=== PATIENT | female | born 1935 | race Caucasian/White ===

== ENCOUNTER 2017-12-19 00:34 | Emergency (ER) | payer MEDICARE ==
[~2017-12-19] VITALS: Ht 162.6 cm; Wt 90.0 kg
[~2017-12-19 00:34] MED LIST: AMLO2.5T PO; DIAZ5 PO; PROBCAP4 PO; REME15TA PO; ROSU10 PO; TYLE3 PO; VITATAB25 PO
[2017-12-19 00:40] VITALS: BP 180/83; PULSE 84; RESP 18; TEMP 97.5; O2SAT 97
[2017-12-19] MEDS ORDERED: cloNIDine HCL 0.1 MG TAB PO ONE (00:45)
--- NOTE | 2017-12-19 00:46 | PD ---
HPI Chief Complaint: HTN Time Seen by Provider: 00:40 Travel History International Travel<30 days: No Contact w/Intl Traveler<30days: No Traveled to known affect area: No History of Present Illness HPI Patient called 911, she complained of slight head throbbing which she usually feels when her blood pressure is up. She checked her blood pressure which read as 200 systolic and the patient call 911 for transportation and further assistance This is all that the patient is sharing at this time. Patient states that she was diagnosed with sinusitis and is on Levaquin for it. Allergic to atorvastatin, Z-Ramesh and Coumadin Past medical history significant for hypercholesterolemia tachyarrhythmia, DVT, cholecystectomy, hiatal hernia, hysterectomy, anxiety, depression, PFSH Past Medical History Arthritis: Yes Anxiety: Yes (TAKES VALIUM OCCASIONALLY FOR SLEEP) Depression: Yes Cancer: No Cardiovascular Problems: Yes (HX TACHYARRHYTHMIA) High Cholesterol: Yes Diabetes: No Diminished Hearing: No Deep Vein Thrombosis: Yes Endocrine: No Gastrointestinal Disorders: No (CURRENT ABDOMINAL PAIN) Genitourinary: No Headaches: Yes Hepatitis: No Hiatal Hernia: Yes Hypertension: Yes Immune Disorder: No Implanted Vascular Access Dvce: No Musculoskeletal: Yes (DDD, ARTHRITIS) Neurologic: Yes (POST HERPETIC TRIGEMINAL NEURALGIA, HEADACHES) Psychiatric: Yes (ANXIETY, CLAUSTRAPHOBIA) Reproductive: No Respiratory: No Seizures: No Thyroid Disease: No Menopausal: Yes Past Surgical History Abdominal Surgery: Yes ( STEPHANIE. ING. HERNIA REP.ABD. HERNIA REP. x3, CHOLECYSTECTOMY) AICD: No Cardiac Surgery: No Cholecystectomy: Yes Ear Surgery: No Endocrine Surgery: No Eye Surgery: Yes (L CATARACT ) Genitourinary Surgery: No Gynecologic Surgery: Yes (HYSTERECTOMY) Hysterectomy: Yes (1999) Joint Replacement: No Neurologic Surgery: No Oral Surgery: No Pacemaker: No Thoracic Surgery: No Other Surgery: Yes (HYSTERECTOMY, CHOLECYSTECTOMY, HERNIA REPAIR) Social History Alcohol Use: Yes (RARELY) Tobacco Use: No Substance Use: No Allergies-Medications (Allergen,Severity, Reaction): Coded Allergies: atorvastatin (Verified Allergy, Severe, MUSCLE PAIN, 12/19/17) warfarin (Verified Allergy, Severe, HIVES, 12/19/17) azithromycin (Verified Adverse Reaction, Severe, abd pain, 12/19/17) Reported Meds & Prescriptions Reported Meds & Active Scripts Active Reported Levofloxacin 750 Mg Tablet 750 Mg PO DAILY Ipratropium Nasal 0.06% [place] 1 [place] EACH NARE QID Valacyclovir (Valacyclovir HCl) 1,000 Mg Tab 1,000 Mg PO BID Trazodone (Trazodone HCl) 50 Mg Tab 50 Mg PO HS Rosuvastatin (Rosuvastatin Calcium) 10 Mg Tab 10 Mg PO HS Hydrochlorothiazide 25 Mg Tab 25 Mg PO DAILY Diazepam 5 Mg Tab 2.5 Mg PO HS PRN Citalopram HBr (Citalopram Hydrobromide) 20 Mg/10 Ml Solution 10 Mg PO DAILY Carbamazepine 100 Mg Chew 100 Mg CHEW BID Aspirin 81 Low Dose (Aspirin) 81 Mg Chew 81 Mg CHEW DAILY Amlodipine (Amlodipine Besylate) 5 Mg Tab 5 Mg PO DAILY Review of Systems General / Constitutional: No: Fever Eyes: No: Visual changes HENT: Positive: Headaches Cardiovascular: No: Chest Pain or Discomfort Respiratory: No: Shortness of Breath Gastrointestinal: No: Abdominal Pain Genitourinary: No: Dysuria Musculoskeletal: No: Pain Skin: No Rash Neurologic: No: Weakness Psychiatric: No: Depression Endocrine: No: Polydipsia Hematologic/Lymphatic: No: Easy Bruising Physical Exam Narrative GENERAL: SKIN: Warm and dry. HEAD: Atraumatic. Normocephalic. EYES: Pupils equal and round. No scleral icterus. No injection or drainage. ENT: No nasal bleeding or discharge. Mucous membranes pink and moist. NECK: Trachea midline. No JVD. CARDIOVASCULAR: Regular rate and rhythm. RESPIRATORY: No accessory muscle use. Clear to auscultation. Breath sounds equal bilaterally. GASTROINTESTINAL: Abdomen soft, non-tender, nondistended. MUSCULOSKELETAL: Extremities without clubbing, cyanosis, or edema. No obvious deformities. NEUROLOGICAL: Awake and alert. No obvious cranial nerve deficits. Motor grossly within normal limits. Five out of 5 muscle strength in the arms and legs. Normal speech. PSYCHIATRIC: Appropriate mood and affect; insight and judgment normal. Data Data Last Documented VS Vital Signs Date Time Temp Pulse Resp B/P (MAP) Pulse Ox O2 Delivery O2 Flow Rate FiO2 12/19/17 03:34 69 16 132/74 (93) 99 12/19/17 02:00 Room Air 12/19/17 00:40 97.5 Orders Orders Clonidine (Catapres) (12/19/17 00:45) Ct Brain W/O Iv Contrast(Rout) (12/19/17 00:40) Lorazepam Inj (Ativan Inj) (12/19/17 02:15) Ed Discharge Order (12/19/17 02:27) [facility] Medical Decision Making Medical Screen Exam Complete: Yes Emergency Medical Condition: Yes Medical Record Reviewed: Yes Differential Diagnosis Hypertensive urgency versus intracranial hemorrhage versus sinus headache with secondary hypertension Narrative Course CT head read by the radiologist as no acute intracranial abnormality, left ethmoid and left maxillary sinus disease. The sinusitis is known to the patient who is already being treated with Levaquin Patient's hypertension resolved with a single clonidine from systolic of 200s down to a systolic of 152 Diagnosis Primary Impression: Hypertension Qualified Codes: I10 - Essential (primary) hypertension Patient Instructions: General Instructions, Hypertension (DC), Sinusitis (GEN) Additional Instructions: CONTINUE TAKING YOUR ANTIBIOTIC FOR YOUR SINUSITIS AND SEE YOUR REGULAR DOCTOR FOR ANY FURTHER EVALUATION AND CONTROL OF YOUR BLOOD PRESSURE Disposition: 01 DISCHARGE HOME Condition: Stable Jameel Page MD Dec 19, 2017 00:46
[2017-12-19] MEDS ORDERED: CITA10SO5 PO (01:25)
[2017-12-19] MEDS ORDERED: AMLO5TAB2 PO (01:25)
[2017-12-19] MEDS ORDERED: LEVO750T3 PO (01:25)
[2017-12-19] MEDS ORDERED: HYDR25TA5 PO (01:25)
[2017-12-19] MEDS ORDERED: ROSU1TAB6 PO (01:25)
[2017-12-19] MEDS ORDERED: IPRA0.06 EACH NARE (01:25)
[2017-12-19] MEDS ORDERED: CARB100C CHEW (01:25)
[2017-12-19] MEDS ORDERED: ASPI1CHW4 CHEW (01:25)
[2017-12-19] MEDS ORDERED: VALA1TAB PO (01:25)
[2017-12-19] MEDS ORDERED: TRAZ50TA12 PO (01:25)
[2017-12-19] MEDS ORDERED: DIAZ5TAB PO (01:25)
--- NOTE | 2017-12-19 01:49 | RADRPT ---
EXAM DATE/TIME: 12/19/2017 01:35 [facility] COMPARISON: No previous studies available for comparison. INDICATIONS : Cephalgia. RADIATION DOSE: 59.98 CTDIvol (mGy) MEDICAL HISTORY : Hypertension. SURGICAL HISTORY : None. ENCOUNTER: Initial ACUITY: 1 day PAIN SCALE: 5/10 LOCATION: cranial TECHNIQUE: Multiple contiguous axial images were obtained of the head. Using automated exposure control and adj ustment of the mA and/or kV according to patient size, radiation dose was kept as low as reasonably a chievable to obtain optimal diagnostic quality images. DICOM format image data is available electro nically for review and comparison. FINDINGS: CEREBRUM: The ventricles are normal for age. No evidence of midline shift, mass lesion, hemorrhage or acute in farction. No extra-axial fluid collections are seen. POSTERIOR FOSSA: The cerebellum and brainstem are intact. The 4th ventricle is midline. The cerebellopontine angle i s unremarkable. EXTRACRANIAL: The visualized portion of the orbits is intact. Complete opacification of the ethmoid air cells on th e left. No bony destruction. Mild mucosal thickening involving the left maxillary sinus without air-f luid level. Remaining paranasal sinuses and mastoid air cells are clear. SKULL: The calvaria is intact. No evidence of skull fracture. CONCLUSION: 1. No acute intracranial abnormality. 2. Left ethmoid and left maxillary sinus disease. Rai Morgan Jr., MD on December 19, 2017 at 1:47 Board Certified Radiologist. This report was verified electronically.
[2017-12-19 02:00] VITALS: BP 156/83; PULSE 74; RESP 20; O2SAT 98
[2017-12-19] MEDS ORDERED: LORazepam 2 MG/ML VIAL IV PUSH ONE (02:15)
[2017-12-19 03:34] VITALS: BP 132/74
== END 2017-12-19 03:36 | disposition home or self-care (01) ==
LOC: PHED 00:34
DX: I10 Essential (primary) hypertension (principal)
CPT/HCPCS: 70450; 96374; 99285; J2060

== ENCOUNTER 2017-12-19 21:51 | Inpatient (IN) | payer MEDICARE ==
[~2017-12-19] VITALS: Ht 167.6 cm; Wt 85.5 kg
[~2017-12-19 21:51] MED LIST changes: +AMLO5TAB2 PO; +ASPI1CHW4 CHEW; +CARB100C CHEW; +CITA10SO5 PO; +DIAZ5TAB PO; +HYDR25TA5 PO; +IPRA0.06 EACH NARE; +LEVO750T3 PO; +ROSU1TAB6 PO; +TRAZ50TA12 PO; +VALA1TAB PO
[2017-12-19 22:08] VITALS: BP 180/79; PULSE 75; RESP 18; TEMP 97.8; O2SAT 97
[2017-12-19] MEDS ORDERED: LORazepam 2 MG/ML VIAL IV PUSH ONE (23:15)
[2017-12-19] MEDS ORDERED: SODIUM CHLORIDE 0.9% FLUSH 10 ML FLUSH IV FLUSH PRN (23:15)
--- NOTE | 2017-12-19 23:18 | PD ---
HPI Chief Complaint: GI Complaint Time Seen by Provider: 23:08 Travel History International Travel<30 days: No Contact w/Intl Traveler<30days: No Traveled to known affect area: No History of Present Illness HPI Patient is an 82-year-old female presents emergency department for evaluation of nausea and vomiting. Patient was seen here yesterday for headache and elevated blood pressure, she received clonidine and a CAT scan of her head which showed some mild sinusitis and she was started on antibiotic. She states after taking the antibiotic today she started having some nausea and vomiting. No labs were checked on her yesterday. She also admits to having very anxious personality. States she has some mild abdominal cramping but no severe pain. She states that her headache is fairly mild currently and is coronal and distribution. She denies any chest pain shortness of breath diarrhea constipation extremity pain. She does endorse tremors PFSH Past Medical History Arthritis: Yes Anxiety: Yes (TAKES VALIUM OCCASIONALLY FOR SLEEP) Depression: Yes Cancer: No Cardiovascular Problems: Yes (HX TACHYARRHYTHMIA) High Cholesterol: Yes Diabetes: No Diminished Hearing: No Deep Vein Thrombosis: Yes Endocrine: No Genitourinary: No Headaches: Yes Hepatitis: No Hiatal Hernia: Yes Hypertension: Yes Immune Disorder: No Implanted Vascular Access Dvce: No Musculoskeletal: Yes (DDD, ARTHRITIS) Neurologic: Yes (POST HERPETIC TRIGEMINAL NEURALGIA, HEADACHES) Psychiatric: Yes (ANXIETY, CLAUSTRAPHOBIA) Reproductive: No Respiratory: No Seizures: No Thyroid Disease: No ?: Not Menopausal: Yes Past Surgical History Abdominal Surgery: Yes ( STEPHANIE. ING. HERNIA REP.ABD. HERNIA REP. x3, CHOLECYSTECTOMY) AICD: No Cardiac Surgery: No Cholecystectomy: Yes Ear Surgery: No Endocrine Surgery: No Eye Surgery: Yes (L CATARACT ) Genitourinary Surgery: No Gynecologic Surgery: Yes (HYSTERECTOMY) Hysterectomy: Yes (1999) Joint Replacement: No Neurologic Surgery: No Oral Surgery: No Pacemaker: No Thoracic Surgery: No Other Surgery: Yes (HYSTERECTOMY, CHOLECYSTECTOMY, HERNIA REPAIR) Social History Alcohol Use: Yes (RARELY) Tobacco Use: No Substance Use: No Allergies-Medications (Allergen,Severity, Reaction): Coded Allergies: atorvastatin (Verified Allergy, Severe, MUSCLE PAIN, 12/20/17) warfarin (Verified Allergy, Severe, HIVES, 12/20/17) azithromycin (Verified Adverse Reaction, Severe, abd pain, 12/20/17) Reported Meds & Prescriptions Reported Meds & Active Scripts Active Reported Levofloxacin 750 Mg Tablet 750 Mg PO DAILY Ipratropium Nasal 0.06% [place] 1 [place] EACH NARE QID Trazodone (Trazodone HCl) 50 Mg Tab 50 Mg PO HS Rosuvastatin (Rosuvastatin Calcium) 10 Mg Tab 10 Mg PO HS Hydrochlorothiazide 25 Mg Tab 25 Mg PO DAILY Diazepam 5 Mg Tab 2.5 Mg PO HS PRN Citalopram HBr (Citalopram Hydrobromide) 20 Mg/10 Ml Solution 10 Mg PO DAILY Carbamazepine 100 Mg Chew 100 Mg CHEW BID Aspirin 81 Low Dose (Aspirin) 81 Mg Chew 81 Mg CHEW DAILY Amlodipine (Amlodipine Besylate) 5 Mg Tab 5 Mg PO DAILY Review of Systems Except as stated in HPI: all other systems reviewed are Neg Physical Exam Narrative GENERAL: Well-developed well-nourished, mildly tremulous, anxious. SKIN: Focused skin assessment warm/dry. HEAD: Atraumatic. Normocephalic. EYES: Pupils equal and round. No scleral icterus. No injection or drainage. ENT: No nasal bleeding or discharge. Mucous membranes pink and moist. NECK: Trachea midline. No JVD. CARDIOVASCULAR: Regular rate and rhythm. No murmur appreciated. RESPIRATORY: No accessory muscle use. Clear to auscultation. Breath sounds equal bilaterally. GASTROINTESTINAL: Abdomen soft, non-tender, nondistended. Hepatic and splenic margins not palpable. She has demonstrated dry heaves a few times in the emergency department MUSCULOSKELETAL: No obvious deformities. No clubbing. No cyanosis. No edema. NEUROLOGICAL: Awake and alert. Cranial nerves II through XII grossly intact and nonfocal, 5 out of 5 strength in all 4 extremities, the patient is exhibiting some mild essential tremor of bilateral upper extremities but her cerebellar testing is normal. PSYCHIATRIC: Appropriate mood and affect; insight and judgment normal. Data Data Last Documented VS Vital Signs Date Time Temp Pulse Resp B/P (MAP) Pulse Ox O2 Delivery O2 Flow Rate FiO2 12/20/17 00:18 72 20 155/73 (100) 97 12/19/17 23:59 Room Air 12/19/17 22:08 97.8 Orders Orders Complete Blood Count With Diff (12/19/17 23:14) Comprehensive Metabolic Panel (12/19/17 23:14) Lipase (12/19/17 23:14) Prothrombin Time / Inr (Pt) (12/19/17 23:14) Act Partial Throm Time (Ptt) (12/19/17 23:14) Urinalysis - C+S If Indicated (12/19/17 23:14) Iv Access Insert/Monitor (12/19/17 23:14) Ecg Monitoring (12/19/17 23:14) Oximetry (12/19/17 23:14) Sodium Chloride 0.9% Flush (Ns Flush) (12/19/17 23:15) Lorazepam Inj (Ativan Inj) (12/19/17 23:15) Ondansetron Inj (Zofran Inj) (12/19/17 23:30) Ondansetron Inj (Zofran Inj) (12/20/17 00:45) Sodium, Random Urine (12/20/17 00:45) Osmolality, Urine (12/20/17 00:45) Sodium Chlor 0.9% 1000 Ml Inj (Ns 1000 M (12/20/17 00:45) Ct Abd/Pel W Iv Contrast(Rout) (12/20/17 00:56) Iohexol 350 Inj (Omnipaque 350 Inj) (12/20/17 01:28) Admit Order (Ed Use Only) (12/20/17 ) Vital Signs (Adult) Q4H (12/20/17 02:46) Diet Heart Healthy (12/20/17 Breakfast) Notify Dr: Other (12/20/17 02:46) Ondansetron Inj (Zofran Inj) (12/20/17 03:00) Activity Oob With Assistance (12/20/17 02:46) Labs Laboratory Tests Test 12/19/17 23:15 12/19/17 23:45 12/20/17 00:00 White Blood Count 8.4 TH/MM3 Red Blood Count 4.59 MIL/MM3 Hemoglobin 13.2 GM/DL Hematocrit 38.8 % Mean Corpuscular Volume 84.6 FL Mean Corpuscular Hemoglobin 28.8 PG Mean Corpuscular Hemoglobin Concent 34.1 % Red Cell Distribution Width 13.4 % Platelet Count 214 TH/MM3 Mean Platelet Volume 7.7 FL Neutrophils (%) (Auto) 79.9 % Lymphocytes (%) (Auto) 12.5 % Monocytes (%) (Auto) 6.1 % Eosinophils (%) (Auto) 0.7 % Basophils (%) (Auto) 0.8 % Neutrophils # (Auto) 6.6 TH/MM3 Lymphocytes # (Auto) 1.1 TH/MM3 Monocytes # (Auto) 0.5 TH/MM3 Eosinophils # (Auto) 0.1 TH/MM3 Basophils # (Auto) 0.1 TH/MM3 CBC Comment DIFF FINAL Differential Comment Prothrombin Time 10.0 SEC Prothromb Time International Ratio 1.0 RATIO Activated Partial Thromboplast Time 24.0 SEC Blood Urea Nitrogen 10 MG/DL Creatinine 0.73 MG/DL Random Glucose 117 MG/DL Total Protein 6.9 GM/DL Albumin 3.4 GM/DL Calcium Level 8.6 MG/DL Alkaline Phosphatase 106 U/L Aspartate Amino Transf (AST/SGOT) 22 U/L Alanine Aminotransferase (ALT/SGPT) 16 U/L Total Bilirubin 0.4 MG/DL Sodium Level 121 MEQ/L Potassium Level 3.7 MEQ/L Chloride Level 87 MEQ/L Carbon Dioxide Level 24.5 MEQ/L Anion Gap 10 MEQ/L Estimat Glomerular Filtration Rate 77 ML/MIN Lipase 67 U/L Urine Color YELLOW Urine Turbidity CLEAR Urine pH 6.5 Urine Specific [place] 1.015 Urine Protein NEG mg/dL Urine Glucose (UA) NEG mg/dL Urine Ketones 15 mg/dL Urine Occult Blood NEG Urine Nitrite NEG Urine Bilirubin NEG Urine Urobilinogen 0.2 MG/DL Urine Leukocyte Esterase NEG Urine RBC 0-3 /hpf Urine WBC 3-5 /hpf Urine Squamous Epithelial Cells 0-5 /hpf Urine Bacteria NONE /hpf Microscopic Urinalysis Comment CULT NOT INDICATED Urine Osmolality 499 MOSM/KG Urine Random Sodium 123 MEQ/L [facility] Medical Decision Making Medical Screen Exam Complete: Yes Emergency Medical Condition: Yes Differential Diagnosis Dehydration, electrolyte abnormality, anxiety, acute abdomen unlikely. Narrative Course Patient was room to the emergency department, her laboratory workup was significant for hyponatremia with a sodium of 121 which may explain her tremors. She is a very anxious person, her blood pressure was significantly elevated on arrival but after Ativan was administered IV the patient's blood pressure normalized and her tremor ceased. She has not had any seizure activity while in the emergency department is alert and awake and oriented. CAT scan of her head was reviewed from yesterday and certainly did show some mild chronic sinusitis but nothing acute intracranially. Her headache had completely resolved in the emergency department. He was fairly mild and she did not have any nuchal rigidity. I do not think there is indication for lumbar puncture in this patient at this time. Patient did have a CT of her abdomen given the dry heaves and her sodium and there is no acute intra- abdominal pathology. Last 24 hours Impressions Abdomen/Pelvis CT 12/20/17 0056 Signed Impressions: Service Date/Time: Wednesday, December 20, 2017 01:08 - CONCLUSION: 1. No acute intraperitoneal or pelvic process to explain current clinical symptoms. 2. Stable nature and extrahepatic biliary ductal dilatation is likely related to prior cholecystectomy. 3. Small hiatal hernia. 4. Prior mesh repair of a small anterior abdominal wall hernia. Superior to be at the cephalad extent of the previous midline laparotomy scar. Tono Renteria MD Results were discussed with the patient I recommend observing her overnight in the hospital. Given her nausea and vomiting I think likely this is hypovolemic hyponatremia and she was given 500 cc bolus of normal saline. Urine sodium and urine osmolality were sent as well. Patient was discussed with Dr. Sykes for admission. Diagnosis Primary Impression: Hyponatremia Additional Impressions: N&V (nausea and vomiting) Headache Admitting Information Admitting Physician Requests: Admit Condition: Stable Shaq Thomas MD Dec 19, 2017 23:18
[2017-12-19 23:30] VITALS: BP 176/73; PULSE 80; RESP 20; O2SAT 98
[2017-12-19] MEDS ORDERED: ONDANSETRON HCL 4 MG/2 ML VIAL IV PUSH ONE (23:30)
[2017-12-19 23:35] LABS: AUTOMATED NEUTROPHIL # 6.6 TH/MM3 (1.8-7.7); BASOPHIL # 0.1 TH/MM3 (0-0.2); BASOPHIL % 0.8 % (0.0-2.0); EOSINOPHIL # 0.1 TH/MM3 (0-0.4); EOSINOPHIL % 0.7 % (0.0-4.0); HEMATOCRIT 38.8 % (35.0-46.0); HEMOGLOBIN 13.2 GM/DL (11.6-15.3); LYMPH % 12.5 % (9.0-44.0); LYMPHOCYTE # 1.1 TH/MM3 (1.0-4.8); MEAN CELL VOLUME 84.6 FL (80.0-100.0); MEAN CORPUSCULAR HEMOGLOBIN 28.8 PG (27.0-34.0); MEAN CORPUSCULAR HGB CONC 34.1 % (32.0-36.0); MEAN PLATELET VOLUME 7.7 FL (7.0-11.0); MONO % 6.1 % (0.0-8.0); MONOCYTE # 0.5 TH/MM3 (0-0.9); NEUT % 79.9 % (16.0-70.0); PLATELET COUNT 214 TH/MM3 (150-450); RED BLOOD COUNT 4.59 MIL/MM3 (4.00-5.30); RED CELL DISTRIBUTION WIDTH 13.4 % (11.6-17.2); WHITE BLOOD COUNT 8.4 TH/MM3 (4.0-11.0)
[2017-12-19 23:53] LABS: BILIRUBIN, URINE NEG (NEG); BLOOD, URINE NEG (NEG); GLUCOSE,URINE NEG (NEG); KETONE, URINE 15 mg/dL (NEG); NITRITE,URINE NEG (NEG); PH, URINE 6.5 (5.0-8.5); URINE COLOR YELLOW (YELLW/STRAW); URINE LEUKOCYTE ESTERASE NEG (NEG)
[2017-12-19 23:57] LABS: RBC, URINE 0-3 /hpf (0-3)
[2017-12-19 23:58] LABS: SQUAMOUS EPITHELIAL CELL URINE 0-5 /hpf (0-5)
[2017-12-19 23:59] VITALS: BP 155/73; PULSE 72; RESP 20; O2SAT 97
[2017-12-20] VITALS (9 sets, daily range): BP systolic 132–171; BP diastolic 62–84; PULSE 60–98; RESP 16–20; TEMP 96.4–98.1; O2SAT 95–98
[2017-12-20 00:19] LABS: ALBUMIN 3.4 GM/DL (3.4-5.0); ALKALINE PHOSPHATASE 106 U/L (45-117); ALT (GPT) 16 U/L (10-53); AST (GOT) 22 U/L (15-37); BICARBONATE 24.5 MEQ/L (21.0-32.0); BLOOD UREA NITROGEN 10 MG/DL (7-18); CALCIUM 8.6 MG/DL (8.5-10.1); CHLORIDE 87 MEQ/L (98-107); CREATININE 0.73 MG/DL (0.50-1.00); GLOMERULAR FILTRATION RATE 77 ML/MIN (>89); GLUCOSE,RANDOM 117 MG/DL (74-106); TOTAL BILIRUBIN ADULT 0.4 MG/DL (0.2-1.0); TOTAL PROTEIN 6.9 GM/DL (6.4-8.2)
[2017-12-20 00:22] LABS: SODIUM (NA) 121 MEQ/L (136-145)
[2017-12-20] MEDS ORDERED: ONDANSETRON HCL 4 MG/2 ML VIAL IV PUSH ONE (00:45)
[2017-12-20] MEDS ORDERED: SODIUM CHLOR 0.9% 1000 ML INJ 1,000 ML IV ONE (00:45)
[2017-12-20] MEDS ORDERED: IOHEXOL 350 MG/ML 10 ML VIAL (for RAD DIAG) IVCONTRAST ONE (01:28)
--- NOTE | 2017-12-20 02:29 | RADRPT ---
EXAM DATE/TIME: 12/20/2017 01:08 [facility] COMPARISON: CT ABDOMEN & PELVIS W CONTRAST, August 22, 2014, 21:26. INDICATIONS : Nausea and vomiting. Lower abdominal pain. IV CONTRAST: 100 cc Omnipaque 350 (iohexol) IV ORAL CONTRAST: No oral contrast ingested. RADIATION DOSE: 20.65 CTDIvol (mGy) MEDICAL HISTORY : Cardiovascular disease. SURGICAL HISTORY : Cholecystectomy. Inguinal hernia repair.Hysterectomy. ENCOUNTER: Initial ACUITY: 1 day PAIN SCALE: 8/10 LOCATION: Bilateral lower quadrant TECHNIQUE: Volumetric scanning of the abdomen and pelvis was performed. Using automated exposure control and ad justment of the mA and/or kV according to patient size, radiation dose was kept as low as reasonably achievable to obtain optimal diagnostic quality images. DICOM format image data is available electro nically for review and comparison. FINDINGS: LOWER LUNGS: The visualized lower lungs are clear. Small hiatal hernia. LIVER: Homogeneous density without lesion. There is some intra-and extra hepatic biliary ductal dilatation p robably representing a capacitance effect associated with prior cholecystectomy. SPLEEN: Normal size without lesion. PANCREAS: Within normal limits. KIDNEYS: Normal in size and shape. There is no mass, stone or hydronephrosis. Small cortical cyst on the left ADRENAL GLANDS: Within normal limits. VASCULAR: There is no aortic aneurysm. Atherosclerotic disease in the central portion of both renal arteries wi th a possible ostial stenosis on the right. BOWEL/MESENTERY: The stomach, small bowel, and colon demonstrate no acute abnormality. There is no free intraperitone al air or fluid. ABDOMINAL WALL: Findings characteristic of a previous midline laparotomy scar with probable mesh repair of a previous incisional hernia in the same general vicinity. RETROPERITONEUM: There is no lymphadenopathy. BLADDER: No wall thickening or mass. REPRODUCTIVE: Patient appears to be status post hysterectomy. INGUINAL: There is no lymphadenopathy or hernia. MUSCULOSKELETAL: Facet hypertrophy again identified at the lumbosacral junction with a mild dextroscoliosis of the lum bar spine. CONCLUSION: 1. No acute intraperitoneal or pelvic process to explain current clinical symptoms. 2. Stable nature and extrahepatic biliary ductal dilatation is likely related to prior cholecystectom y. 3. Small hiatal hernia. 4. Prior mesh repair of a small anterior abdominal wall hernia. Superior to be at the cephalad extent of the previous midline laparotomy scar. Tono Renteria MD on December 20, 2017 at 2:21 Board Certified Radiologist. This report was verified electronically.
[2017-12-20 02:50] LABS: SODIUM,RANDOM URINE 123 MEQ/L
[2017-12-20] MEDS ORDERED: ONDANSETRON HCL 4 MG/2 ML VIAL IV PUSH PRN (03:00)
[2017-12-20 03:04] LABS: OSMOLALITY,URINE 499 MOSM/KG (300-1300)
[2017-12-20] MEDS ORDERED: DIAZEPAM 5 MG TAB PO PRN (11:00)
[2017-12-20] MEDS: SODIUM CHLOR 0.9% 1000 ML INJ 1,000 ML IV SCH ×2 (11:15→20:46)
[2017-12-20] MEDS ORDERED: SENNOSIDES 8.6 MG TAB PO PRN (11:15)
[2017-12-20] MEDS ORDERED: LACTULOSE SYRUP 20 GM/30 ML CUP PO PRN (11:15)
[2017-12-20] MEDS ORDERED: MAGNESIUM HYDROXIDE SUSP 30 ML CUP PO PRN (11:15)
[2017-12-20] MEDS ORDERED: BISACODYL 10 MG SUPP RECTAL PRN (11:15)
[2017-12-20] MEDS ORDERED: NALOXONE HCL 0.4 MG/ML AMP IV PUSH PRN (11:15)
--- NOTE | 2017-12-20 11:19 | EKG ---
Date Performed: 12/19/2017 Time Performed: 23:05:08 PTAGE: 82 years EKG: Sinus rhythm NORMAL ECG PREVIOUS TRACING : 10/29/2014 08.35 Since the previous tracing, no significant change noted DOCTOR: Torito Mcintosh Interpretating Date/Time 12/20/2017 11:16:08
--- NOTE | 2017-12-20 11:19 | HHI.HP ---
HPI Service [facility] Hospitalists Primary Care Physician Autumn Camarillo MD Admission Diagnosis Symptomatic hyponatremia. N/V Chief Complaint: nausea and vomit Travel History International Travel<30 Days: No Contact w/Intl Traveler <30 Da: No Traveled to Known Affected Are: No History of Present Illness Patient is an 82-year-old female presents emergency department for evaluation of nausea and vomiting. Patient was seen here yesterday for headache and elevated blood pressure, she received clonidine and a CAT scan of her head which showed some mild sinusitis and she was started on antibiotic. She states after taking the antibiotic today she started having some nausea and vomiting. No labs were checked on her yesterday. She also admits to having very anxious personality. States she has some mild abdominal cramping but no severe pain. She states that her headache is fairly mild currently and is coronal and distribution. She denies any chest pain shortness of breath diarrhea constipation extremity pain. She does endorse tremors. Patient with history of hypertension and is supposed to be on bid 5mg amlodipine will restart at that dose and was on levaquin at 750 which started her symptoms also unable to tolerate zithromax has been on amoxicillin in past will start for sinus. Patient sodium low and started on IV fluid related to possible diuretic and the nausea and vomit has been normal in past. will start on po intake continue IV fluid recheck lab in am if stable discharge tomorrow. Review of Systems Gastrointestinal: COMPLAINS OF: Nausea, Vomiting Psychiatric: COMPLAINS OF: Anxiety Past Family Social History Past Medical History hypertension,DVT,depression,tachyarrhythmia,hernia djd neuralgia Past Surgical History gallbladder,hysterectomy,cataract Reported Medications [id number],valium 2.5,crestor 10 citaloprim 10,nasal spray,trazadone 50, amlodipine 5 bid hctz 25 asa 81 carbamazpine 100 bid Allergies: Coded Allergies: atorvastatin (Verified Allergy, Severe, MUSCLE PAIN, 12/20/17) warfarin (Verified Allergy, Severe, HIVES, 12/20/17) azithromycin (Verified Adverse Reaction, Severe, abd pain, 12/20/17) Social History NS,ND Physical Exam Vital Signs Vital Signs Date Time Temp Pulse Resp B/P (MAP) Pulse Ox O2 Delivery O2 Flow Rate FiO2 12/20/17 08:00 96.4 60 16 132/63 (86) 96 12/20/17 04:42 96.8 74 18 145/78 (100) 96 12/20/17 04:27 68 159/74 (102) 96 12/20/17 02:30 80 20 171/84 (113) 98 12/20/17 01:30 75 20 167/81 (109) 97 12/20/17 00:18 72 20 155/73 (100) 97 12/19/17 23:59 72 20 155/73 (100) 97 Room Air 12/19/17 23:59 20 12/19/17 23:30 80 20 176/73 (107) 98 12/19/17 22:08 97.8 75 18 180/79 (112) 97 Physical Exam GENERAL: This is a well-nourished, well-developed patient, in no apparent distress. SKIN: No rashes, ecchymoses or lesions. Cool and dry. HEAD: Atraumatic. Normocephalic. No temporal or scalp tenderness. EYES: Pupils equal round and reactive. Extraocular motions intact. No scleral icterus. No injection or drainage. ENT: Nose without bleeding, purulent drainage or septal hematoma. Throat without erythema, tonsillar hypertrophy or exudate. Uvula midline. Airway patent. NECK: Trachea midline. No JVD or lymphadenopathy. Supple, nontender, no meningeal signs. CARDIOVASCULAR: Regular rate and rhythm without murmurs, gallops, or rubs. RESPIRATORY: Clear to auscultation. Breath sounds equal bilaterally. No wheezes , rales, or rhonchi. GASTROINTESTINAL: Abdomen soft, non-tender, nondistended. No hepato-splenomegaly , or palpable masses. No guarding. MUSCULOSKELETAL: Extremities without clubbing, cyanosis, or edema. No joint tenderness, effusion, or edema noted. No calf tenderness. Negative Homans sign bilaterally. NEUROLOGICAL: Awake and alert. Cranial nerves II through XII intact. Motor and sensory grossly within normal limits. Five out of 5 muscle strength in all muscle groups. Normal speech. Laboratory Laboratory Tests Test 12/19/17 23:15 12/19/17 23:45 12/20/17 00:00 White Blood Count 8.4 Red Blood Count 4.59 Hemoglobin 13.2 Hematocrit 38.8 Mean Corpuscular Volume 84.6 Mean Corpuscular Hemoglobin 28.8 Mean Corpuscular Hemoglobin Concent 34.1 Red Cell Distribution Width 13.4 Platelet Count 214 Mean Platelet Volume 7.7 Neutrophils (%) (Auto) 79.9 Lymphocytes (%) (Auto) 12.5 Monocytes (%) (Auto) 6.1 Eosinophils (%) (Auto) 0.7 Basophils (%) (Auto) 0.8 Neutrophils # (Auto) 6.6 Lymphocytes # (Auto) 1.1 Monocytes # (Auto) 0.5 Eosinophils # (Auto) 0.1 Basophils # (Auto) 0.1 CBC Comment DIFF FINAL Differential Comment Prothrombin Time 10.0 Prothromb Time International Ratio 1.0 Activated Partial Thromboplast Time 24.0 Blood Urea Nitrogen 10 Creatinine 0.73 Random Glucose 117 Total Protein 6.9 Albumin 3.4 Calcium Level 8.6 Alkaline Phosphatase 106 Aspartate Amino Transf (AST/SGOT) 22 Alanine Aminotransferase (ALT/SGPT) 16 Total Bilirubin 0.4 Sodium Level 121 Potassium Level 3.7 Chloride Level 87 Carbon Dioxide Level 24.5 Anion Gap 10 Estimat Glomerular Filtration Rate 77 Lipase 67 Urine Color YELLOW Urine Turbidity CLEAR Urine pH 6.5 Urine Specific Jennings 1.015 Urine Protein NEG Urine Glucose (UA) NEG Urine Ketones 15 Urine Occult Blood NEG Urine Nitrite NEG Urine Bilirubin NEG Urine Urobilinogen 0.2 Urine Leukocyte Esterase NEG Urine RBC 0-3 Urine WBC 3-5 Urine Squamous Epithelial Cells 0-5 Urine Bacteria NONE Microscopic Urinalysis Comment CULT NOT INDICATED Urine Osmolality 499 Urine Random Sodium 123 Result Diagram: 12/19/17231412/19/172314 Imaging CT head sinusitis,cxr no acute changes ekg no acute changes Course started on IV fluid and zofran Septic Shock Reassessment Septic shock perfusion: reassessment completed Caprini VTE Risk Assessment Caprini VTE Risk Assessment: Mod/High Risk (score >= 2) Caprini Risk Assessment Model Point Value = 1 Point Value = 2 Point Value = 3 Point Value = 5 Age 41-60 Minor surgery BMI > 25 kg/m2 Swollen legs Varicose veins or History of unexplained or recurrent spontaneous Oral contraceptives or hormone replacement Sepsis (< 1 month) Serious lung disease, including pneumonia (< 1 month) Abnormal pulmonary function Acute myocardial infarction Congestive heart failure (< 1 month) History of inflammatory bowel disease Medical patient at bed rest Age 61-74 Arthroscopic surgery Major open surgery (> 45 min) Laparoscopic surgery (> 45 min) Malignancy Confined to bed (> 72 hours) Immobilizing plaster cast Central venous access Age >= 75 History of VTE Family history of VTE Factor V Leiden Prothrombin [id number] Lupus anticoagulant Anticardiolipin antibodies Elevated serum homocysteine Heparin-induced thrombocytopenia Other congenital or acquired thrombophilia Stroke (< 1 month) Elective arthroplasty Hip, pelvis, or leg fracture Acute spinal cord injury (< 1 month) Prophylaxis Regimen Total Risk Factor Score Risk Level Prophylaxis Regimen 0-1 Low Early ambulation 2 Moderate Order ONE of the following: *Sequential Compression Device (SCD) *Heparin 5000 units SQ BID 3-4 Higher Order ONE of the following medications: *Heparin 5000 units SQ TID *Enoxaparin/Lovenox 40 mg SQ daily (WT < 150 kg, CrCl > 30 mL/min) *Enoxaparin/Lovenox 30 mg SQ daily (WT < 150 kg, CrCl > 10-29 mL/min) *Enoxaparin/Lovenox 30 mg SQ BID (WT < 150 kg, CrCl > 30 mL/min) AND/OR *Sequential Compression Device (SCD) 5 or more Highest Order ONE of the following medications: *Heparin 5000 units SQ TID (Preferred with Epidurals) *Enoxaparin/Lovenox 40 mg SQ daily (WT < 150 kg, CrCl > 30 mL/min) *Enoxaparin/Lovenox 30 mg SQ daily (WT < 150 kg, CrCl > 10-29 mL/min) *Enoxaparin/Lovenox 30 mg SQ BID (WT < 150 kg, CrCl > 30 mL/min) AND *Sequential Compression Device (SCD) Assessment and Plan Problem List: (1) Hyponatremia ICD Codes: E87.1 - Hypo-osmolality and hyponatremia Status: Acute Plan: probably related to N and v and is on diuretic will hold diuretic give IV fluid follow up labs try po intake (2) N&V (nausea and vomiting) ICD Codes: R11.2 - Nausea with vomiting, unspecified Status: Acute Plan: a little better with zofran will continue for now (3) Hypertension ICD Codes: I10 - Hypertension Status: Acute Plan: continue amlodipine was given clonidine in er yesterday which also make her not feel well if needed can add losartan (4) Sinusitis ICD Codes: J32.9 - Chronic sinusitis, unspecified Plan: will stop levaquin and start amoxicillin Assessment and Plan as aboe recheck labs Code Status full Discussed Condition With patient Physician Certification 2 Midnight Certification Type: Admission for Inpatient Services Order for Inpatient Services The services are ordered in accordance with Medicare regulations or non- Medicare payer requirements, as applicable. In the case of services not specified as inpatient-only, they are appropriately provided as inpatient services in accordance with the 2-midnight benchmark. Estimated LOS (days): 2 2 days is the estimated time the patient will need to remain in the hospital, assuming treatment plan goals are met and no additional complications. Post-Hospital Plan: Not yet determined Mario Sykes MD Dec 20, 2017 11:18
[2017-12-20] MEDS ORDERED: IPRATROPIUM NASAL SCH (13:00)
[2017-12-20] MEDS: AMOXICILLIN (TRIHYDRATE) 250 MG CAP PO SCH ×2 (14:31→18:00)
[2017-12-20] MEDS: amLODIPine BESYLATE 5 MG TAB PO SCH (20:44)
[2017-12-20] MEDS: DOCUSATE SODIUM 50 MG/SENNA 8.6 MG TAB PO SCH (20:44)
[2017-12-20] MEDS ORDERED: traZODone HCL 50 MG TAB PO SCH (21:00)
[2017-12-20] MEDS ORDERED: ATORVASTATIN 20 MG TAB PO SCH (21:00)
[2017-12-21] VITALS: BP 166/74; PULSE 72; RESP 20; TEMP 96.5; O2SAT 95
--- NOTE | 2017-12-21 07:30 | HHI.PR ---
Subjective Remarks Patient reports he feels much better today. Tolerated regular meal last night. No more nausea or vomiting. Strength is improved. Has ambulated in the room to use the restroom without difficulty per her report. Objective Vitals Vital Signs Date Time Temp Pulse Resp B/P (MAP) Pulse Ox O2 Delivery O2 Flow Rate FiO2 12/21/17 00:00 96.5 72 20 166/74 (104) 95 12/20/17 20:00 97.0 64 20 148/75 (99) 96 12/20/17 16:00 98.1 64 16 155/68 (97) 95 12/20/17 12:00 97.5 98 16 137/62 (87) 96 12/20/17 08:00 96.4 60 16 132/63 (86) 96 GENERAL: No acute distress, alert and oriented. Pleasant. SKIN: Warm and dry. HEAD: Normocephalic. EYES: No scleral icterus. No injection or drainage. NECK: Supple, trachea midline. No JVD or lymphadenopathy. CARDIOVASCULAR: Regular rate and rhythm without murmurs, gallops, or rubs. RESPIRATORY: Breath sounds equal bilaterally. No accessory muscle use. GASTROINTESTINAL: Abdomen soft, non-tender, nondistended. Bowel sounds normal. MUSCULOSKELETAL: No cyanosis, or edema. BACK: Nontender without obvious deformity. No CVA tenderness. Result Diagram: 12/19/17231412/19/1723[address] head sinusitis,cxr no acute changes ekg no acute changes Urinary Catheter: No Vascular Central Line Catheter: No A/P Problem List: (1) Hyponatremia ICD Codes: E87.1 - Hypo-osmolality and hyponatremia Status: Acute Plan: probably related to N and v and is on diuretic. Diuretic had been held. Patient tolerating oral intake well. Labs pending this a.m. Plan discharge home later today. (2) N&V (nausea and vomiting) ICD Codes: R11.2 - Nausea with vomiting, unspecified Status: Acute Plan: Much improved and tolerating oral intake. (3) Hypertension ICD Codes: I10 - Hypertension Status: Acute Plan: continue amlodipine was given clonidine in er yesterday which also make her not feel well if needed can add losartan (4) Sinusitis ICD Codes: J32.9 - Chronic sinusitis, unspecified Status: Acute Plan: Stopped Levaquin and started amoxicillin Discharge Planning Hopefully discharge home later today Jc Mahajan MD PhD Dec 21, 2017 07:30
[2017-12-21] MEDS ORDERED: ONDA4TAB7 SL (07:32)
[2017-12-21] MEDS ORDERED: AMOX250C3 PO (07:32)
[2017-12-21 08:00] VITALS: BP 127/59; PULSE 66; RESP 14; TEMP 96.6; O2SAT 93
[2017-12-21 08:08] LABS: BICARBONATE 26.4 MEQ/L (21.0-32.0); CALCIUM 7.8 MG/DL (8.5-10.1); CREATININE 0.54 MG/DL (0.50-1.00)
[2017-12-21] MEDS ORDERED: AMLO5 PO (08:13)
--- NOTE | 2017-12-21 08:15 | HHI.DS ---
Discharge Summary Admission Date Dec 20, 2017 at 02:50 Discharge Date: Dec 21, 2017 Admitting Diagnosis Symptomatic hyponatremia. N/V (1) Hyponatremia Diagnosis: Principal ICD Codes: E87.1 - Hypo-osmolality and hyponatremia Status: Acute (2) N&V (nausea and vomiting) Diagnosis: Principal ICD Codes: R11.2 - Nausea with vomiting, unspecified Status: Acute (3) Hypertension Diagnosis: Secondary ICD Codes: I10 - Hypertension Status: Acute (4) Sinusitis Diagnosis: Secondary ICD Codes: J32.9 - Chronic sinusitis, unspecified Status: Acute Brief History Patient is an 82-year-old female presents emergency department for evaluation of nausea and vomiting. Patient was seen here yesterday for headache and elevated blood pressure, she received clonidine and a CAT scan of her head which showed some mild sinusitis and she was started on antibiotic. She states after taking the antibiotic today she started having some nausea and vomiting. No labs were checked on her yesterday. She also admits to having very anxious personality. States she has some mild abdominal cramping but no severe pain. She states that her headache is fairly mild currently and is coronal and distribution. She denies any chest pain shortness of breath diarrhea constipation extremity pain. She does endorse tremors. Patient with history of hypertension and is supposed to be on bid 5mg amlodipine will restart at that dose and was on levaquin at 750 which started her symptoms also unable to tolerate zithromax has been on amoxicillin in past will start for sinus. Patient sodium low and started on IV fluid related to possible diuretic and the nausea and vomit has been normal in past. will start on po intake continue IV fluid recheck lab in am if stable discharge tomorrow. CBC/BMP: 12/19/17 2315 12/21/17 0615 Significant Findings Laboratory Tests Test 12/19/17 23:15 12/19/17 23:45 12/20/17 00:00 12/21/17 06:15 Neutrophils (%) (Auto) 79.9 % (16.0-70.0) Activated Partial Thromboplast Time 24.0 SEC (24.3-30.1) Random Glucose 117 MG/DL (74-106) Sodium Level 121 MEQ/L (136-145) 131 MEQ/L (136-145) Chloride Level 87 MEQ/L (98-107) 97 MEQ/L (98-107) Estimat Glomerular Filtration Rate 77 ML/MIN (>89) Lipase 67 U/L (73-393) Urine Ketones 15 mg/dL (NEG) Calcium Level 7.8 MG/DL (8.5-10.1) Potassium Level 3.4 MEQ/L (3.5-5.1) Hospital Course Pt admitted for n/v with symptomatic hyponatremia with Na of 121. She was given IVF and antiemetics. She improved significantly and was able to tolerate oral intake w/o difficulty. Sodium on day of d/c was 131. Will hold hctz. Added Amlodipine. She will f/u with PCP next week. Pt Condition on Discharge: Stable Discharge Disposition: Discharge Home Discharge Instructions DIET: Follow Instructions for: Heart Healthy Diet Additional Diet Instructions: advance diet slowly as tolerated Activities you can perform: Regular-No Restrictions Follow up Referrals: PCP Follow-up New Orders: BASIC METABOLIC PROF - 2-3 Days New Medications: Ondansetron Odt (Ondansetron Odt) 4 Mg Tab 4 MG SL Q6HR PRN for Nausea/Vomiting, #12 TAB 0 Refills Amlodipine (Norvasc) 5 Mg Tab 5 MG PO DAILY for htn, #31 TAB Amoxicillin (Amoxicillin) 250 Mg Cap 250 MG PO TID for sinusitis, #15 CAP Continued Medications: Aspirin (Aspirin 81 Low Dose) 81 Mg Chew 81 MG CHEW DAILY, #30 TAB Carbamazepine (Carbamazepine) 100 Mg Chew 100 MG CHEW BID, #60 TAB 0 Refills Citalopram Hydrobromide (Citalopram HBr) 20 Mg/10 Ml Solution 10 MG PO DAILY Diazepam (Diazepam) 5 Mg Tab 2.5 MG PO HS PRN for ANXIETY, TAB 0 Refills Rosuvastatin (Rosuvastatin) 10 Mg Tab 10 MG PO HS for Cholesterol Management, TAB 0 Refills Trazodone (Trazodone) 50 Mg Tab 50 MG PO HS for Control Depression, #30 TAB 0 Refills Jc Mahajan MD PhD Dec 21, 2017 08:15
[2017-12-21] MEDS ORDERED: ASPIRIN 81 MG CHEW TAB CHEW SCH (09:00)
[2017-12-21] MEDS ORDERED: POTASSIUM CHLORIDE 10 MEQ CONTROLLED RELEASE TAB PO ONE (09:00)
[2017-12-21] MEDS ORDERED: CITALOPRAM HYDROBROMIDE 20 MG TAB PO SCH (09:00)
[2017-12-21] MEDS: AMOXICILLIN (TRIHYDRATE) 250 MG CAP PO SCH (09:00)
[2017-12-21] MEDS: SODIUM CHLOR 0.9% 1000 ML INJ 1,000 ML IV SCH (10:50)
[2017-12-21] MEDS: DOCUSATE SODIUM 50 MG/SENNA 8.6 MG TAB PO SCH (10:50)
[2017-12-21] MEDS: amLODIPine BESYLATE 5 MG TAB PO SCH (10:50)
== END 2017-12-21 11:14 | disposition home or self-care (01) | DRG 641 ==
LOC: PHED 21:51 → PHEDA 12-20 02:50 → PH3B 12-20 04:42
PROVIDERS: ADMIT Internal Medicine; ATTEND Internal Medicine
DX: E87.1 Hypo-osmolality and hyponatremia (principal); I10 Essential (primary) hypertension; R11.2 Nausea with vomiting, unspecified; M19.90 Unspecified osteoarthritis, unspecified site; F32.9 Major depressive disorder, single episode, unspecified; J32.9 Chronic sinusitis, unspecified
CPT/HCPCS: 74177; 80048; 80053; 81001; 83690; 83935; 84300; 85025; 85610; 85730; 93005; 96361; 96374; 96375; 96376; J2060; J2405; J7030; Q9967

== ENCOUNTER 2017-12-25 11:20 | Emergency (ER) | payer MEDICARE ==
[~2017-12-25] VITALS: Ht 167.6 cm; Wt 85.0 kg
[~2017-12-25 11:20] MED LIST changes: -AMLO2.5T PO; +AMLO5 PO; -AMLO5TAB2 PO; +AMOX250C3 PO; -DIAZ5 PO; -HYDR25TA5 PO; -LEVO750T3 PO; +ONDA4TAB7 SL; -PROBCAP4 PO; -REME15TA PO; -ROSU10 PO; -TYLE3 PO; -VALA1TAB PO; -VITATAB25 PO
[2017-12-25 11:25] VITALS: BP 191/86; PULSE 78; RESP 18; TEMP 98.6; O2SAT 95
--- NOTE | 2017-12-25 12:01 | PD ---
HPI Chief Complaint: Cold / Flu Symptoms Time Seen by Provider: 11:33 Travel History International Travel<30 days: No Contact w/Intl Traveler<30days: No Traveled to known affect area: No History of Present Illness HPI This 82-year-old female is complaining of some pain in her sinus area. She was in the hospital recently with symptomatic hyponatremia. On December [address] scan of the head done. Intracranial was negative but she was noted to have left ethmoid and maxillary sinusitis at that time. She had recently been on Levaquin but she says that was too strong for her and most recently she has been on amoxicillin 250 3 times daily. She was given a 5 day course and is about to finish it. Her sodium at the time of admission was 121. She says he been eating well. She has occasional nausea. PFSH Past Medical History Arthritis: Yes Anxiety: Yes (TAKES VALIUM OCCASIONALLY FOR SLEEP) Depression: Yes Heart Rhythm Problems: Yes Cancer: No Cardiovascular Problems: Yes (HX TACHYARRHYTHMIA) High Cholesterol: Yes Diabetes: No Diminished Hearing: No Deep Vein Thrombosis: Yes Endocrine: No Genitourinary: No Headaches: Yes Hepatitis: No Hiatal Hernia: Yes Hypertension: Yes Immune Disorder: No Implanted Vascular Access Dvce: No Musculoskeletal: Yes (DDD, ARTHRITIS) Neurologic: Yes (POST HERPETIC TRIGEMINAL NEURALGIA, HEADACHES) Psychiatric: Yes (ANXIETY, CLAUSTRAPHOBIA) Reproductive: No Respiratory: No Seizures: No Thyroid Disease: No Influenza Vaccination: Yes ?: Not Menopausal: Yes Past Surgical History Abdominal Surgery: Yes ( STEPHANIE. ING. HERNIA REP.ABD. HERNIA REP. x3, CHOLECYSTECTOMY) AICD: No Cardiac Surgery: No Cholecystectomy: Yes Ear Surgery: No Endocrine Surgery: No Eye Surgery: Yes (L CATARACT ) Genitourinary Surgery: No Gynecologic Surgery: Yes (HYSTERECTOMY) Hysterectomy: Yes (1999) Joint Replacement: No Neurologic Surgery: No Oral Surgery: No Pacemaker: No Thoracic Surgery: No Other Surgery: Yes (HYSTERECTOMY, CHOLECYSTECTOMY, HERNIA REPAIR) Social History Alcohol Use: Yes (RARELY) Tobacco Use: No Substance Use: No Allergies-Medications (Allergen,Severity, Reaction): Coded Allergies: atorvastatin (Verified Allergy, Severe, MUSCLE PAIN, 12/25/17) warfarin (Verified Allergy, Severe, HIVES, 12/25/17) azithromycin (Verified Adverse Reaction, Severe, abd pain, 12/25/17) Reported Meds & Prescriptions Reported Meds & Active Scripts Active Norvasc (Amlodipine Besylate) 5 Mg Tab 5 Mg PO DAILY Amoxicillin 250 Mg Cap 250 Mg PO TID Reported Ipratropium Nasal 0.06% Hermitage 1 Hermitage EACH NARE QID Trazodone (Trazodone HCl) 50 Mg Tab 50 Mg PO HS Rosuvastatin (Rosuvastatin Calcium) 10 Mg Tab 10 Mg PO HS Diazepam 5 Mg Tab 2.5 Mg PO HS PRN Aspirin 81 Low Dose (Aspirin) 81 Mg Chew 81 Mg CHEW DAILY Review of Systems General / Constitutional: No: Fever, Chills Eyes: No: Diploplia, Visual changes HENT: Positive: Headaches, Sore Throat, Rhinitis Cardiovascular: No: Chest Pain or Discomfort, Palpitations Respiratory: No: Shortness of Breath Gastrointestinal: Positive: Nausea Musculoskeletal: No: Myalgias Skin: No Rash Neurologic: No: Weakness, Dizziness Physical Exam Narrative GENERAL: Well-developed female SKIN: Focused skin assessment warm/dry. HEAD: Atraumatic. Normocephalic. EYES: Pupils equal and round. No scleral icterus. No injection or drainage. ENT: No nasal bleeding or discharge. Mucous membranes pink and moist. There is tenderness over the maxillary and frontal sinuses NECK: Trachea midline. No JVD. CARDIOVASCULAR: Regular rate and rhythm. No murmur appreciated. RESPIRATORY: No accessory muscle use. Clear to auscultation. Breath sounds equal bilaterally. GASTROINTESTINAL: Abdomen soft, non-tender, nondistended. Hepatic and splenic margins not palpable. MUSCULOSKELETAL: No obvious deformities. No clubbing. No cyanosis. No edema. NEUROLOGICAL: Awake and alert. No obvious cranial nerve deficits. Motor grossly within normal limits. Normal speech. PSYCHIATRIC: Appropriate mood and affect; insight and judgment normal. Data Data Last Documented VS Vital Signs Date Time Temp Pulse Resp B/P (MAP) Pulse Ox O2 Delivery O2 Flow Rate FiO2 12/25/17 11:25 98.6 78 18 191/86 (121) 95 Orders Orders Complete Blood Count With Diff (12/25/17 11:50) Basic Metabolic Panel (Bmp) (12/25/17 11:50) Labs Laboratory Tests Test 12/25/17 12:04 White Blood Count 5.9 TH/MM3 Red Blood Count 4.55 MIL/MM3 Hemoglobin 13.1 GM/DL Hematocrit 38.7 % Mean Corpuscular Volume 85.0 FL Mean Corpuscular Hemoglobin 28.8 PG Mean Corpuscular Hemoglobin Concent 33.9 % Red Cell Distribution Width 13.4 % Platelet Count 278 TH/MM3 Mean Platelet Volume 6.9 FL Neutrophils (%) (Auto) 75.9 % Lymphocytes (%) (Auto) 14.4 % Monocytes (%) (Auto) 6.3 % Eosinophils (%) (Auto) 1.2 % Basophils (%) (Auto) 2.2 % Neutrophils # (Auto) 4.4 TH/MM3 Lymphocytes # (Auto) 0.9 TH/MM3 Monocytes # (Auto) 0.4 TH/MM3 Eosinophils # (Auto) 0.1 TH/MM3 Basophils # (Auto) 0.1 TH/MM3 CBC Comment DIFF FINAL Differential Comment Blood Urea Nitrogen 10 MG/DL Creatinine 0.59 MG/DL Random Glucose 95 MG/DL Calcium Level 8.7 MG/DL Sodium Level 134 MEQ/L Potassium Level 3.9 MEQ/L Chloride Level 98 MEQ/L Carbon Dioxide Level 29.1 MEQ/L Anion Gap 7 MEQ/L Estimat Glomerular Filtration Rate 98 ML/MIN MDM Medical Decision Making Medical Screen Exam Complete: Yes Emergency Medical Condition: Yes Medical Record Reviewed: Yes Differential Diagnosis Differential includes partially treated sinusitis, hyponatremia Narrative Course Sodium today is 134. There is only given 5 days of treatment for her sinusitis. She apparently is sensitive to antibiotics but tolerated 250 amoxicillin Diagnosis Primary Impression: Sinusitis Scripts Amoxicillin (Amoxicillin) 250 Mg Cap 250 MG PO TID for Infection for 10 Days, CAP 0 Refills Prov: Doni Marc MD 12/25/17 Disposition: 01 DISCHARGE HOME Condition: Stable Doni Marc MD Dec 25, 2017 12:01
[2017-12-25 12:21] LABS: AUTOMATED NEUTROPHIL # 4.4 TH/MM3 (1.8-7.7); BASOPHIL # 0.1 TH/MM3 (0-0.2); BASOPHIL % 2.2 % (0.0-2.0); EOSINOPHIL # 0.1 TH/MM3 (0-0.4); EOSINOPHIL % 1.2 % (0.0-4.0); HEMATOCRIT 38.7 % (35.0-46.0); HEMOGLOBIN 13.1 GM/DL (11.6-15.3); LYMPH % 14.4 % (9.0-44.0); LYMPHOCYTE # 0.9 TH/MM3 (1.0-4.8); MEAN CORPUSCULAR HEMOGLOBIN 28.8 PG (27.0-34.0); MEAN CORPUSCULAR HGB CONC 33.9 % (32.0-36.0); MEAN PLATELET VOLUME 6.9 FL (7.0-11.0); MONO % 6.3 % (0.0-8.0); MONOCYTE # 0.4 TH/MM3 (0-0.9); NEUT % 75.9 % (16.0-70.0); PLATELET COUNT 278 TH/MM3 (150-450); RED BLOOD COUNT 4.55 MIL/MM3 (4.00-5.30); RED CELL DISTRIBUTION WIDTH 13.4 % (11.6-17.2); WHITE BLOOD COUNT 5.9 TH/MM3 (4.0-11.0)
[2017-12-25 12:33] LABS: BICARBONATE 29.1 MEQ/L (21.0-32.0); CALCIUM 8.7 MG/DL (8.5-10.1)
[2017-12-25 12:37] LABS: CREATININE 0.59 MG/DL (0.50-1.00)
[2017-12-25] MEDS ORDERED: AMOX250C3 PO (13:03)
[2017-12-25 13:28] VITALS: BP 153/75; PULSE 67; RESP 18; O2SAT 96
== END 2017-12-25 13:36 | disposition home or self-care (01) ==
LOC: PHED 11:20
DX: J32.0 Chronic maxillary sinusitis (principal); J32.2 Chronic ethmoidal sinusitis; I10 Essential (primary) hypertension; M19.90 Unspecified osteoarthritis, unspecified site; E78.00 Pure hypercholesterolemia, unspecified; F41.9 Anxiety disorder, unspecified; F32.9 Major depressive disorder, single episode, unspecified; Z86.718 Personal history of other venous thrombosis and embolism; Z88.8 Allergy status to other drugs, medicaments and biological substances; Z79.899 Other long term (current) drug therapy
CPT/HCPCS: 80048; 85025; 99283

== ENCOUNTER 2018-03-31 00:12 | Emergency (ER) | payer MEDICARE ==
[~2018-03-31] VITALS: Ht 165.1 cm; Wt 86.1 kg
[~2018-03-31 00:12] MED LIST changes: -CARB100C CHEW; -CITA10SO5 PO; -ONDA4TAB7 SL
[2018-03-31 00:14] VITALS: BP 221/91; PULSE 84; RESP 18; TEMP 97.6; O2SAT 97
[2018-03-31 00:28] VITALS: BP 187/85; PULSE 82
--- NOTE | 2018-03-31 00:39 | PD ---
HPI Chief Complaint: Hypertension Time Seen by Provider: 00:26 Travel History International Travel<30 days: No Contact w/Intl Traveler<30days: No Traveled to known affect area: No History of Present Illness HPI This is an 82-year-old female who presents to the emergency department with high blood pressure. She says that last night and tonight her blood pressure has been elevated, up in the 200s, constant, moderate severity associated with a dull headache which has since subsided. She denies any associated chest pain. She took an extra water pill yesterday in addition to her 5 mg of amlodipine that she takes twice daily. They are going on a cruise tomorrow to the [facility] and she wanted to make sure she was safe to go on her cruise. She also tells me that her has dementia and was part of the reason that she came in because he was very anxious about her. PFSH Past Medical History Arthritis: Yes Anxiety: Yes (TAKES VALIUM OCCASIONALLY FOR SLEEP) Depression: Yes Heart Rhythm Problems: Yes Cancer: No Cardiovascular Problems: Yes (HX TACHYARRHYTHMIA) High Cholesterol: Yes Diabetes: No Diminished Hearing: No Deep Vein Thrombosis: Yes Endocrine: No Genitourinary: No Headaches: Yes Hepatitis: No Hiatal Hernia: Yes Hypertension: Yes Immune Disorder: No Implanted Vascular Access Dvce: No Medical other: No Musculoskeletal: Yes (DDD, ARTHRITIS) Neurologic: Yes (POST HERPETIC TRIGEMINAL NEURALGIA, HEADACHES) Psychiatric: Yes (ANXIETY, CLAUSTRAPHOBIA) Reproductive: No Respiratory: No Seizures: No Thyroid Disease: No Tetanus Vaccination: < 5 Years Influenza Vaccination: Yes Menopausal: Yes Past Surgical History Abdominal Surgery: Yes ( STEPHANIE. ING. HERNIA REP.ABD. HERNIA REP. x3, CHOLECYSTECTOMY) AICD: No Cardiac Surgery: No Cholecystectomy: Yes Ear Surgery: No Endocrine Surgery: No Eye Surgery: Yes (L CATARACT ) Genitourinary Surgery: No Gynecologic Surgery: Yes (HYSTERECTOMY) Hysterectomy: Yes (1999) Joint Replacement: No Neurologic Surgery: No Oral Surgery: No Pacemaker: No Thoracic Surgery: No Other Surgery: Yes (HYSTERECTOMY, CHOLECYSTECTOMY, HERNIA REPAIR) Social History Alcohol Use: Yes (RARELY) Tobacco Use: No Substance Use: No Allergies-Medications (Allergen,Severity, Reaction): Coded Allergies: atorvastatin (Verified Allergy, Severe, MUSCLE PAIN, 12/25/17) warfarin (Verified Allergy, Severe, HIVES, 12/25/17) azithromycin (Verified Adverse Reaction, Severe, abd pain, 12/25/17) Reported Meds & Prescriptions Reported Meds & Active Scripts Active Amoxicillin 250 Mg Cap 250 Mg PO TID 10 Days Norvasc (Amlodipine Besylate) 5 Mg Tab 5 Mg PO DAILY Amoxicillin 250 Mg Cap 250 Mg PO TID Reported Ipratropium Nasal 0.06% [place] 1 [place] EACH NARE QID Trazodone (Trazodone HCl) 50 Mg Tab 50 Mg PO HS Rosuvastatin (Rosuvastatin Calcium) 10 Mg Tab 10 Mg PO HS Diazepam 5 Mg Tab 2.5 Mg PO HS PRN Aspirin 81 Low Dose (Aspirin) 81 Mg Chew 81 Mg CHEW DAILY Review of Systems Except as stated in HPI: all other systems reviewed are Neg Physical Exam Narrative GENERAL:Well appearing, no acute distress SKIN: Focused skin assessment warm and dry. HEAD: Atraumatic. Normocephalic. EYES: Pupils equal and round. No injection or drainage. ENT: Moist mucous membranes NECK: Trachea midline. CARDIOVASCULAR: 3 out of 6 systolic murmur over the right upper sternal border. RESPIRATORY: Clear to auscultation. Breath sounds equal bilaterally. GASTROINTESTINAL: Abdomen soft, non-tender, nondistended. MUSCULOSKELETAL: No obvious deformities. NEUROLOGICAL: Awake and alert. No obvious cranial nerve deficits. Moving all extremities. PSYCHIATRIC: Appropriate mood and affect; insight and judgment normal. Data Data Last Documented VS Vital Signs Date Time Temp Pulse Resp B/P (MAP) Pulse Ox O2 Delivery O2 Flow Rate FiO2 03/31/18 00:28 82 187/85 (119) 03/31/18 00:28 18 97 Room Air 03/31/18 00:14 97.6 [facility] Medical Decision Making Medical Screen Exam Complete: Yes Emergency Medical Condition: Yes Interpretation(s) Afebrile, no tachycardia, hypertensive Differential Diagnosis Hypertensive urgency, hypertension, anxiety Narrative Course This is an 82-year-old female who presents to the emergency department with high blood pressure. She is going on a cruise tomorrow and was concerned about going due to her blood pressure. She is asymptomatic currently. Her blood pressure reduced some just with sitting and resting in the emergency department. I suspect a lot of this is secondary to anxiety leading up to her trip. I reassured her given she is asymptomatic and I encouraged her to enjoy her trip and only to see the doctor if she develops symptoms. She is very well- appearing and she will be discharged home. Diagnosis Primary Impression: Hypertension Qualified Codes: I10 - Essential (primary) hypertension Patient Instructions: General Instructions Additional Instructions: If you develop severe chest pain, shortness of breath, sweating, lightheadedness , dizziness or difficulty breathing return to the emergency department immediately. Med/Other Pt SpecificInfo: No Change to Meds Disposition: 01 DISCHARGE HOME Condition: Stable Fiorella Day MD Mar 31, 2018 00:39
== END 2018-03-31 00:49 | disposition home or self-care (01) ==
LOC: PHED 00:12
DX: I10 Essential (primary) hypertension (principal); F41.8 Other specified anxiety disorders; R51 Headache; M19.90 Unspecified osteoarthritis, unspecified site; Z86.718 Personal history of other venous thrombosis and embolism; Z90.49 Acquired absence of other specified parts of digestive tract
CPT/HCPCS: 99281